=== PATIENT | female | born 1995 | race Two or more races ===

== ENCOUNTER 2024-06-19 09:24 | Emergency (ER) | payer OTHER ==
[~2024-06-19] VITALS: Ht 165.1 cm; Wt 56.7 kg
[2024-06-19] MEDS: IV NS 1000 ML 1,000 ML IV ONE (10:11)
[2024-06-19 10:33] LABS: BASOPHILS % (AUTO) 0.5 % (0.0-2.0); EOSINOPHILS % (AUTO) 0.1 % (0.0-7.0); HEMATOCRIT 39.2 % (31.2-41.9); HEMOGLOBIN 13.3 g/dL (10.9-14.3); LYMPHOCYTES # (AUTO) 0.9 K/uL (0.8-4.8); MEAN CORPUSCULAR HEMOGLOBIN 31.6 uug (24.7-32.8); MEAN CORPUSCULAR HGB CONC 34 g/dL (32.3-35.6); MEAN CORPUSCULAR VOLUME 93.1 fL (75.5-95.3); MONOCYTES # (AUTO) 0.2 K/uL (0.1-1.30); NEUTROPHILS % (AUTO) 83.4 % (38.5-71.5); PLATELET COUNT (AUTO) 219 K/uL (179-408); RED BLOOD CELL COUNT(AUTO) 4.21 MIL/uL (3.63-4.92); RED CELL DISTRIBUTION WIDTH 12.5 % (12.3-17.7); WHITE BLOOD COUNT (AUTO) 7.2 K/uL (3.8-11.8)
[2024-06-19 10:35] LABS: DIFFERENTIAL COMMENT 1
[2024-06-19 11:03] LABS: ALBUMIN 4.1 g/dL (3.4-5.0); BILIRUBIN,TOTAL 0.3 mg/dL (0.2-1.0); CALCIUM 9.3 mg/dL (8.5-10.1); CREATININE 0.6 mg/dL (0.6-1.3); POTASSIUM 3.7 mmol/L (3.5-5.1); TOTAL PROTEIN, SERUM 7.4 g/dL (6.4-8.2)
[2024-06-19 12:20] LABS: *BILIRUBIN,URIN NEGATIVE (NEGATIVE); *BLOOD, URINE NEGATIVE (NEGATIVE); *CLARITY,URINE CLEAR (CLEAR); *COLOR,URINE YELLOW (YELLOW); *KETONES,URINE 4+ (NEGATIVE); *PROTEIN,URINE NEGATIVE (NEGATIVE); *UROBILINOGEN,URINE 0.2 E.U./dl (NORMAL); LEUKOCYTE ESTERASE ,URINE NEGATIVE (NEGATIVE); NITRITE, URINE NEGATIVE (NEGATIVE); UGLUCOSE NEGATIVE (NEGATIVE)
[2024-06-19 12:24] LABS: *URINE HCG, QUAL NEGATIVE (NEGATIVE)
[2024-06-19 13:17] LABS: BACTERIA,URINE FEW /HPF (NONE SEEN); SQUAMOUS EPITHELIAL CELL,UR FEW /HPF (NONE SEEN); WBC,URINE 0-3 /HPF (0-3)
[2024-06-19] MEDS ORDERED: METO-295 PO (13:22)
[2024-06-19 13:56] VITALS: BP 111/61; O2SAT 100
== END 2024-06-19 13:30 | disposition home or self-care (01) ==
LOC: ER 09:24
DX: R11.2 Nausea with vomiting, unspecified (principal); R10.9 Unspecified abdominal pain; E86.0 Dehydration; F17.210 Nicotine dependence, cigarettes, uncomplicated; K21.9 Gastro-esophageal reflux disease without esophagitis
CPT/HCPCS: 99283; 96360; 80053; 81001; 84703; 83690; 85025; 36415; J7040; A4606; A4663

== ENCOUNTER 2024-12-20 20:55 | Emergency (ER) | payer OTHER ==
[~2024-12-20] VITALS: Ht 165.1 cm; Wt 56.7 kg
[~2024-12-20 20:55] MED LIST: METO-295 PO
[2024-12-20 21:00] VITALS: BP 90/67
[2024-12-20] MEDS ORDERED: ACETAMINOPHEN 500 MG TABLET ONE (21:49)
[2024-12-20] MEDS ORDERED: IBUPROFEN 200 MG TABLET ONE (21:49)
[2024-12-20] MEDS: IBUPROFEN 200 MG TABLET PO ONE (22:11)
[2024-12-20] MEDS: ACETAMINOPHEN 500 MG TABLET PO ONE (22:11)
[2024-12-20] MEDS ORDERED: IBUP-1955 PO (22:26)
[2024-12-20 22:49] VITALS: BP 95/71; O2SAT 100
== END 2024-12-20 22:49 | disposition home or self-care (01) ==
LOC: ER 20:56
DX: M54.2 Cervicalgia (principal); R51.9 Headache, unspecified; F17.290 Nicotine dependence, other tobacco product, uncomplicated; K21.9 Gastro-esophageal reflux disease without esophagitis; V43.52XA Car driver injured in collision with other type car in traffic accident, initial encounter; Y93.89 Activity, other specified; Y92.488 Other paved roadways as the place of occurrence of the external cause; Y99.8 Other external cause status
CPT/HCPCS: 72125; A4606; A4663; A9150